=== PATIENT | male | born 1970 | race Caucasian/White ===

== ENCOUNTER 2018-01-03 17:51 | Emergency (ER) | payer OTHER ==
[~2018-01-03] VITALS: Ht 182.9 cm; Wt 90.7 kg
--- NOTE | 2018-01-03 17:56 | ED.ADGEN ---
Adult General Chief Complaint Chief Complaint " .. I was cutting some meat.. and got this Lt. index finger..." HPI HPI Patient is a 47 year old male who presents with above hx and complaints of 2 centimeter laceration to left index finger. This neurovascular appears to be intact. Range of motion appears to be intact. Patient did wash hands before arrival water. Patient is up-to-date with tetanus. Patient normally follows at [facility] for care . No recent travel. No significant ill contacts. Patient is right-hand dominant. Review of Systems Review of Systems Constitutional: Denies fever or chills [] Eyes: Denies change in visual acuity, redness, or eye pain [] HENT: Denies nasal congestion or sore throat [] Respiratory: Denies cough or shortness of breath [] Cardiovascular: No additional information not addressed in HPI [] GI: Denies abdominal pain, nausea, vomiting, bloody stools or diarrhea [] : Denies dysuria or hematuria [] Musculoskeletal: Denies back pain or joint pain [ Complaints of ]laceration left index finger Integument: Denies rash or skin lesions [] Neurologic: Denies headache, focal weakness or sensory changes [] Endocrine: Denies polyuria or polydipsia [] All other systems were reviewed and found to be within normal limits, except as documented in this note. Current Medications Current Medications Current Medications Medications (Trade) Dose Ordered Sig/Rosa Start Time Stop Time Status Last Admin Dose Admin Bupivacaine HCl (Sensorcaine Pf 0.75%) 10 ml 1X ONCE 01/03/18 19:00 01/03/18 19:01 DC Bupivacaine HCl (Sensorcaine-Mpf 0.25%) 10 ml STK-MED ONCE 01/03/18 18:12 01/03/18 18:13 DC Cephalexin HCl (Keflex) 500 mg 1X ONCE 01/03/18 19:00 01/03/18 19:01 DC Diphtheria/ Tetanus/Acell Pertussis (Boostrix) 0.5 ml ONCE ONCE 01/03/18 18:45 01/03/18 18:46 DC 01/03/18 18:28 0.5 ML Lidocaine HCl 20 ml 1X ONCE 01/03/18 19:00 01/03/18 19:01 DC Tetanus/ Diphtheria Toxoids Adsorbed (Tenivac Vial) 0.5 ml ONCE ONCE 01/03/18 19:00 3/26/18 19:01 DC Allergies Allergies Allergies Coded Allergies Type Severity Reaction Last Updated Verified No Known Drug Allergies 01/03/18 No Physical Exam Physical Exam Constitutional: Well developed, well nourished, no acute distress, non-toxic appearance. [] HENT: Normocephalic, atraumatic, bilateral external ears normal, oropharynx moist, no oral exudates, nose normal. [] Eyes: PERRLA, EOMI, conjunctiva normal, no discharge. [] Neck: Normal range of motion, no tenderness, supple, no stridor. [] Cardiovascular:Heart rate regular rhythm, no murmur [] Lungs & Thorax: Bilateral breath sounds clear to auscultation [] Abdomen: Bowel sounds normal, soft, no tenderness, no masses, no pulsatile masses. [] Skin: Warm, dry, no erythema, no rash. [] Back: No tenderness, no CVA tenderness. [] Extremities: No tenderness, no cyanosis, no clubbing, ROM intact, no edema. [] Except laceration Lt index finger as per HPI Neurologic: Alert and oriented X 3, normal motor function, normal sensory function, no focal deficits noted. [] Psychologic: Affect normal, judgement normal, mood normal. [] Current Patient Data Vital Signs Vital Signs Date Time Temp Pulse Resp B/P (MAP) Pulse Ox O2 Delivery O2 Flow Rate FiO2 01/03/18 18:50 43 20 131/86 (101) 99 01/03/18 18:32 98.1 Room Air EKG EKG [] Radiology/Procedures Radiology/Procedures [] Course & Med Decision Making Course & Med Decision Making Pertinent Labs and Imaging studies reviewed. (See chart for details) Procedure Note: Laceration Repair.-Finger cleaned and irrigated Betadine and normal saline. Digital block as well as local injection of Sensorcaine and lidocaine placed. Reirrigated finger and range of motion with normal saline under pressure. Placed 4-0 Prolene x 4 simple sutures. Dressing applied. Patient keep laceration clean and dry. When the dressing removed, apply Polysporin 4 times a day. Sutures out in 10 days. Return if any concerns. Patient take Keflex 500 x3 times a day for 7 days. [] Final Impression Final Impression 1. Lt. index finger laceration- 2 cm[] Problems: Dragon Disclaimer Dragon Disclaimer This electronic medical record was generated, in whole or in part, using a voice recognition dictation system. NAREN DYER MD Jan 03, 2018 17:56
[2018-01-03] MEDS ORDERED: DIPHTH,PERTUSS(ACELL),TET TOX 0.5 ML DISP.SYRIN. VAX IM ONE ×2 (18:10→18:45)
[2018-01-03] MEDS ORDERED: BUPIVACAINE MPF 0.25% 10 ML VIAL. ONE (18:12)
[2018-01-03] MEDS ORDERED: BUPIVACAINE PF 0.75% 10 ML VIAL ONE (18:12)
[2018-01-03] MEDS ORDERED: BUPIVACAINE PF 0.75% 10 ML VIAL IJ ONE ×2 (18:30→19:00)
[2018-01-03 18:32] VITALS: BP 125/96
[2018-01-03] MEDS ORDERED: CEPH-264 PO (18:39)
[2018-01-03] MEDS ORDERED: TETANUS AND DIPHTHERIA TOX/PF 0.5 ML VIAL. VAX IM ONE (19:00)
[2018-01-03] MEDS ORDERED: LIDOCAINE 2% 20 ML VIAL. IJ ONE (19:00)
[2018-01-03] MEDS ORDERED: CEPHALEXIN 250 MG CAPSULE PO ONE (19:00)
== END 2018-01-03 19:04 | disposition home or self-care (01) ==
LOC: ER 17:51
DX: S61.211A Laceration without foreign body of left index finger without damage to nail, initial encounter (principal); W26.0XXA Contact with knife, initial encounter; Y93.89 Activity, other specified; Y99.8 Other external cause status; Y92.89 Other specified places as the place of occurrence of the external cause
CPT/HCPCS: 12001; 90471; 90715; 99283; J3490

== ENCOUNTER 2018-06-08 08:18 | Emergency (ER) | payer OTHER ==
[~2018-06-08 08:18] MED LIST: CEPH-264 PO
[2018-06-08 08:46] LABS: BASO % 1 % (0-3); EOS # 0.5 x10^3/uL (0.0-0.7); EOS % 8 % (0-3); HEMATOCRIT 42.7 % (39.0-53.0); HEMOGLOBIN 14.7 g/dL (13.0-17.5); LYMPH # 1.3 x10^3/uL (1.0-4.8); LYMPH % 22 % (24-48); MEAN CORPUSCULAR HEMOGLOBIN 33 pg (25-35); MEAN CORPUSCULAR HGB CONC 35 g/dL (31-37); MEAN CORPUSCULAR VOLUME 97 fL (79-100); MONO # 0.6 x10^3/uL (0.0-1.1); MONO % 11 % (0-9); NEUT # 3.5 x10^3uL (1.8-7.7); NEUT % 59 % (31-73); PLATELET COUNT 245 x10^3/uL (140-400); RED BLOOD COUNT 4.41 x10^6/uL (4.30-5.70); RED CELL DISTRIBUTION WIDTH 13.6 % (11.5-14.5)
--- NOTE | 2018-06-08 08:56 | PHYS DOC ---
Past History Past Medical History: No Pertinent History Past Surgical History: No Surgical History Additional Smoking Information: non smoker, hx of smoking Alcohol Use: Rarely Drug Use: None Adult General Chief Complaint Chief Complaint: CHEST PAIN HPI HPI 48-year-old gentleman who presents the emergency department today after having pain last night after getting on the treadmill in the substernal region. He reports having a large meal of tacos prior to getting on the treadmill. He reports he felt a burning sensation and a cramping sensation in the upper belly and chest after being on the treadmill. He felt nauseous and was salivating. The pain subsided after a few minutes. Through the night and into the morning he has had intermittent mild pain. The patient denies unilateral leg swelling hemoptysis family or personal history of blood clotting disorders. The pt denies recent immobilization or surgery. He denies history of high blood pressure high cholesterol. He denies family history of heart disease. Review of systems is negative for fevers chills cough nausea vomiting. All other review of systems is negative unless otherwise noted in history of present illness. ED course: 48-year-old male presenting to the emergency department today with chest pain. vitals. On examination the patient is well-appearing. His pain has subsided. EKG is obtained and reviewed by myself which shows sinus bradycardia. ST segments are not suggestive of ischemia. There is mild ST segment elevation in lead V2 and V3. Repeat EKG shows no acute evolving changes. Troponin is negative. I had a long risk-benefit discussion with the patient about low risk chest pain evaluation. Heart score calculated to be 4. We will admit the patient for cardiac consultation [id number] troponins. I spoke with Dr. Awad. Given the need for probable MPI testing and not having a capabilities here at [facility] we will send the patient to [facility]. Dr. Capps excepts patient for admission. Patient was given aspirin here in the emergency department along with a GI cocktail. His pain remains 1 out of 10. Review of Systems Review of Systems SEE ABOVE. Allergies Allergies Allergies Coded Allergies Type Severity Reaction Last Updated Verified No Known Drug Allergies 01/03/18 No Physical Exam Physical Exam SEE ABOVE Constitutional: Well developed, well nourished, no acute distress, non-toxic appearance. [] HENT: Normocephalic, atraumatic, bilateral external ears normal, oropharynx moist, no oral exudates, nose normal. [] Eyes: PERRLA, EOMI, conjunctiva normal, no discharge. [] Neck: Normal range of motion, no tenderness, supple, no stridor. [] Cardiovascular:Heart rate regular rhythm, no murmur [] Lungs & Thorax: Bilateral breath sounds clear to auscultation [] Abdomen: Bowel sounds normal, soft, no tenderness, no masses, no pulsatile masses. [] Skin: Warm, dry, no erythema, no rash. [] Back: No tenderness, no CVA tenderness. [] Extremities: No tenderness, no cyanosis, no clubbing, ROM intact, no edema. No clinical evidence of DVT in the legs. Neurologic: Alert and oriented X 3, normal motor function, normal sensory function, no focal deficits noted. [] Psychologic: Affect normal, judgement normal, mood normal. [] Current Patient Data Vital Signs Vital Signs Date Time Temp Pulse Resp B/P (MAP) Pulse Ox O2 Delivery O2 Flow Rate FiO2 06/08/18 08:26 97.6 65 18 97 Room Air EKG EKG [] Radiology/Procedures Radiology/Procedures [] Course & Med Decision Making Course & Med Decision Making Pertinent Labs and Imaging studies reviewed. (See chart for details) [] Dragon Disclaimer Dragon Disclaimer This electronic medical record was generated, in whole or in part, using a voice recognition dictation system. Departure Departure: Impression: Primary Impression: Chest pain Disposition: XFER SHT-TRM HOSP Condition: STABLE Referrals: CATHY GRAYSON MD (PCP) CHICO AVILES MD Jun 08, 2018 08:56
[2018-06-08 08:59] LABS: ALBUMIN 3.8 g/dL (3.4-5.0); CALCIUM 9.3 mg/dL (8.5-10.1); CREATININE 1.3 mg/dL (0.7-1.3); DIRECT BILIRUBIN 0.1 mg/dL (0.0-0.2); GFR 58.4; TOTAL BILIRUBIN 0.7 mg/dL (0.2-1.0); TOTAL PROTEIN 6.9 g/dL (6.4-8.2)
--- NOTE | 2018-06-08 09:05 | RAD ---
EXAM: Chest, single view. HISTORY: Chest pain. COMPARISON: None. FINDINGS: A frontal view of the chest is obtained. There is no infiltrate, pleural effusion or pneumothorax. The heart is normal in size. IMPRESSION: No acute pulmonary finding. Electronically signed by: Katherine Pa MD (06/08/2018 9:02 AM) [place] [id number]
[2018-06-08] MEDS ORDERED: IOHEXOL 300 MG/ML 75 ML VIAL. IV ONE (10:00)
--- NOTE | 2018-06-08 10:10 | RAD ---
Examination: CT angiography chest HISTORY: History of chest pain COMPARISON: None available TECHNIQUE: Axial CT angiographic images of chest were performed with IV contrast. Coronal and sagittal 3-D MIP reformats performed Exposure: One or more of the following individualized dose reduction techniques were utilized for this examination: 1. Automated exposure control 2. Adjustment of the mA and/or kV according to patient size 3. Use of iterative reconstruction technique FINDINGS: The visualized thyroid gland grossly appears unremarkable. The central airways are patent. Mild cardiomegaly. The caliber of the aorta grossly appears unremarkable. There is no evidence of filling defect identified in the main pulmonary arterial trunk and right and left main pulmonary arteries and the visualized lobar, segmental branch of the pulmonary arteries. Minimal bibasilar lung atelectasis. The visualized liver, spleen, adrenals grossly appears unremarkable. Mild degenerative changes thoracic spine. IMPRESSION: 1. No evidence of pulmonary embolism. 2. Minimal bibasilar lung atelectasis. Electronically signed by: Andrea Solorzano MD (06/08/2018 10:07 AM) [id number]
[2018-06-08] MEDS ORDERED: ASPIRIN 81 MG TAB.CHEW PO ONE (10:45)
[2018-06-08] MEDS ORDERED: LIDO:MAALOX 1:1 20 ML SINGLE DOSE. PO ONE (10:45)
[2018-06-08 11:23] VITALS: BP 129/75
--- NOTE | 2018-06-08 12:32 | EKG ---
[address] [address] Test Date: 2018-06-08 Test Time: 08:28:12 Pat Name: ACLE HORNER Department: Room: Gender: M Drug And Alcohol Counselor: : 1970 Requested By: CHICO AVILES Order Number: [id number] Reading MD: William Awad MD Measurements Intervals [place] Rate: 44 P: 25 OK: 176 QRS: 3 QRSD: 104 T: 11 QT: 474 QTc: 405 Interpretive Statements SINUS BRADYCARDIA Electronically Signed On 06-08-2018 12:41:33 CDT by Willaim Awad MD
--- NOTE | 2018-06-08 12:33 | EKG ---
[address] [address] Test Date: 2018-06-08 Test Time: 09:08:12 Pat Name: CALE HORNER Department: Room: Gender: M Water Manager: : 1970 Requested By: CHICO AVILES Order Number: [id number] Reading MD: William Awad MD Measurements Intervals [place] Rate: 41 P: 25 CO: 180 QRS: 3 QRSD: 102 T: 11 QT: 486 QTc: 405 Interpretive Statements SINUS BRADYCARDIA Electronically Signed On 06-08-2018 12:42:06 CDT by William Awad MD
== END 2018-06-08 12:07 | disposition short-term general hospital (02) ==
LOC: ER 08:18
DX: R07.2 Precordial pain (principal); R00.1 Bradycardia, unspecified; Z87.891 Personal history of nicotine dependence
CPT/HCPCS: 36415; 71045; 71275; 80048; 80076; 83690; 84484; 85025; 85379; 93005; 99285; Q9967